=== PATIENT | male | born 1960 | race Caucasian/White ===

== ENCOUNTER 2024-01-26 06:27 | Day surgery (SDC) | payer OTHER, SELFPAY ==
[2024-01-08 06:53] VITALS: BMI 30.8
[2024-01-08 08:58] LABS: Hematocrit 43.6 % (39.0-52.0); Hemoglobin 14.4 g/dL (13.0-18.0); Mean Corpuscular Hgb 29.4 pg (27.0-31.0); Mean Corpuscular Volume 89.2 fL (80.0-94.0); Mean Platelet Volume 9.9 fL (7.4-10.4); Platelet Count 214 10^3/uL (130-400); Red Blood Cell Count 4.89 10^6/uL (4.70-6.10); Red Cell Dist. Width 13.1 % (11.5-14.5)
[2024-01-08 09:07] LABS: INR 1.06; PT 13.6 Sec (11.4-14.6)
[2024-01-08 09:08] LABS: APTT 35.6 Sec (23.4-35.0)
[2024-01-08 09:28] LABS: ALT (SGPT) 36 U/L (0-50); AST (SGOT) 37 U/L (17-59); Albumin 4.2 g/dl (3.5-5.0); Alkaline Phosphatase 80 U/L (38-126); Blood Urea Nitrogen 20 mg/dl (9-20); Calcium 9.2 mg/dl (8.4-10.2); Carbon Dioxide 22 mmol/L (22-30); Chloride 109 mmol/L (98-107); Estimated Creatinine Clearance 88 ml/min; Glucose 102 mg/dl (70-99); Potassium 4.4 mmol/L (3.5-5.1); Sodium 142 mmol/L (135-145); Total Bilirubin 0.7 mg/dl (0.2-1.3); Total Protein 6.7 g/dl (6.3-8.2); eGFR > 60.00
[2024-01-26] VITALS (10 sets, daily range): BP systolic 121–159; BP diastolic 66–89; BMI 30.8
[2024-01-26] MEDS: NORMOSOL-R 1000 IV (11:45)
[2024-01-26] MEDS: TYLENOL 1000 MG PO (13:12)
--- NOTE | 2024-01-26 15:37 | W.PN.ENT ---
Today's Communication
-
seen bedside
Impression / Plan
-
doing well postop
will admit because of severe sleep apnea and airway surgery
IV fluids
Subjective Data
-
doing well post op
Objective Data
-
Vital Signs
Temp Pulse Resp BP Pulse Ox
98.3 F 63 18 135/78 96
01/26/24 11:30 01/26/24 11:30 01/26/24 11:30 01/26/24 11:30 01/26/24 11:30
Lab Results
01/08/24 06:51
01/08/24 06:51
PT 13.6 Sec (11.4-14.6) 01/08/24 06:51
INR 1.06 01/08/24 06:51
APTT 35.6 Sec (23.4-35.0) H 01/08/24 06:51
Calcium 9.2 mg/dl (8.4-10.2) 01/08/24 06:51
Total Bilirubin 0.7 mg/dl (0.2-1.3) 01/08/24 06:51
AST 37 U/L (17-59) 01/08/24 06:51
ALT 36 U/L (0-50) 01/08/24 06:51
Alkaline Phosphatase 80 U/L (38-126) 01/08/24 06:51
Physical Exam
-
no bleeding noted
Chest: Clear
Respiratory: Clear
Data Reviewed
-
Radiology Results: Report Reviewed
[2024-01-26] MEDS: SUBLIMAZE 25 MCG IV ×2 (15:44→16:22)
[2024-01-26] MEDS: LR 1000 IV (16:37)
--- NOTE | 2024-01-26 18:01 | PTCARENOTE ---
Received pt from PACU, VSS, room air, pt resting comfortably with significant other at bedside.
[2024-01-26] MEDS: ANESTHETIC LOZENGE 1 LOZENGE PO (18:31)
[2024-01-26] MEDS: TYLENOL 650 MG PO (20:17)
[2024-01-27] MEDS: TYLENOL 650 MG PO (01:32)
[2024-01-27 03:23] VITALS: BP 124/73
[2024-01-27 07:25] VITALS: BP 148/80
--- NOTE | 2024-01-27 08:26 | W.PN.ENT ---
Today's Communication
-
seen at bedside
Impression / Plan
-
doing well postop day 1
will discharge to home
follow up Monday in [place] office as scheduled
Subjective Data
-
doing well post op
taking pos
minimal bleeding
Objective Data
-
Vital Signs
Temp Pulse Resp BP Pulse Ox
98.3 F 70 18 148/80 96
01/27/24 07:25 01/27/24 07:25 01/27/24 07:25 01/27/24 07:25 01/27/24 07:25
Intake & Output
01/26/24 01/27/24 01/28/24
06:59 06:59 06:59
Intake:
Oral fluids 775 / 775
IV fluids (Total) 700.0 / 700.0
Lr 1,000 ml @ 50 mls/hr IV . 50.0 / 50.0
Q20H NURIA Rx#:[id number]
norm 50 / 50
Output:
Straight cath output 700 / 700
Other:
Number of approximated MODERATE 3
amounts of urine
Lab Results
01/08/24 06:51
01/08/24 06:51
PT 13.6 Sec (11.4-14.6) 01/08/24 06:51
INR 1.06 01/08/24 06:51
APTT 35.6 Sec (23.4-35.0) H 01/08/24 06:51
Calcium 9.2 mg/dl (8.4-10.2) 01/08/24 06:51
Total Bilirubin 0.7 mg/dl (0.2-1.3) 01/08/24 06:51
AST 37 U/L (17-59) 01/08/24 06:51
ALT 36 U/L (0-50) 01/08/24 06:51
Alkaline Phosphatase 80 U/L (38-126) 01/08/24 06:51
Physical Exam
-
nasal splints in place
minimal bleeding
soft palate looks good
Chest: Clear
Respiratory: Clear
Data Reviewed
-
Radiology Results: Report Reviewed
Micro Results: Report Reviewed
[2024-01-27 11:15] VITALS: BP 155/77
--- NOTE | 2024-01-27 11:36 | CM ---
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 No psychiatric hospitalizations. Pharmacy is [facility] in
[place], PCP is [facility]. Home with No Needs.
--- NOTE | 2024-01-27 11:43 | CM ---
Patient has been medically cleared for discharge to home with no additional skilled services. SO will transport home.
--- NOTE | 2024-01-27 13:01 | CM ---
Patient has been medically cleared for discharge to home with no additional skilled services. Patient's SO will transport home.
== END 2024-01-27 12:27 | disposition home or self-care (01) ==
LOC: SDS 06:27
PROVIDERS: ATTENDING PHYSICIAN Otolaryngology Facial Plastic Surgery; FAMILY PHYSICIAN Family Medicine; OTHER PHYSICIAN Internal Medicine Cardiovascular Disease
DX: J34.2 Deviated nasal septum (principal); G47.30 Sleep apnea, unspecified; J34.3 Hypertrophy of nasal turbinates
CPT/HCPCS: 30520; 30140; 42140; 88302; 88304; 36415; 80053; 85027; 85610; 85730